=== PATIENT | female | born 1960 | race African-American/Black ===

== ENCOUNTER 2017-10-21 02:44 | Emergency (ER) | payer OTHER ==
--- NOTE | 2017-10-21 03:07 | PDOC ---
History of Present Illness - General Stated Complaint: BACK PAIN Time Seen by Provider: 10/21/17 03:07 - History of Present Illness Initial Comments: 57 year old with history of HTN and 4 c-sections presenting with bilateral lower back/ flank pain radiaitng to her pelvis with increased urinary frequency. This was all sudden onset sharp 10/10 pain beginning at 14:00 yesterday that has progressively gotten worse. admits to some nausea along with the pain but no vomiting, fevers, chills, diarrhea, constipation, or other symptoms. She did have renal stones in the remote past. Her PCP is Prashanth Garcia 10/21/17 03:49 Past History - Past Medical History Allergies/Adverse Reactions: Allergies Allergy/AdvReac Type Severity Reaction Status Date / Time codeine [Codeine] Allergy Intermediate Itching Verified 07/13/12 16:37 Shellfish Allergy Intermediate Nausea Verified 07/13/12 16:37 tetracycline [Tetracycline] Allergy Intermediate Itching Verified 07/13/12 16:37 Home Medications: Ambulatory Orders Ibuprofen [Motrin -] 600 mg PO QID PRN #28 tablet 10/21/17 Anemia: No Asthma: Yes Cancer: No Cardiac Disorders: No CVA: No COPD: No CHF: No Dementia: No Diabetes: No GI Disorders: No Disorders: No HTN: Yes Hypercholesterolemia: No Kidney Stones: (questionable history of kidney stones) Liver Disease: No Seizures: No Thyroid Disease: No - Surgical History Abdominal Surgery: No Appendectomy: No Cardiac Surgery: No Cholecystectomy: No Lung Surgery: No Neurologic Surgery: No Orthopedic Surgery: No - Suicide/Smoking/Psychosocial Hx Smoking Status: No Smoking History: Never smoked Have you smoked in the past 12 months: No Number of Cigarettes Smoked Daily: 0 Hx Alcohol Use: No Drug/Substance Use Hx: No Substance Use Type: None Hx Substance Use Treatment: No Review of Systems - Review of Systems Constitutional: No: Diaphoresis, Fever, Weakness HEENTM: No: Eye Pain, Blurred Vision Respiratory: No: Cough, Orthopnea, Shortness of Breath Cardiac (ROS): No: Chest Pain ABD/GI: No: Constipated, Diarrhea, Nausea, Vomiting : No: Burning, Dysuria, Discharge Musculoskeletal: Yes: Back Pain. No: Joint Pain Integumentary: No: Bruising, Lesions, Lumps Neurological: No: Headache, Numbness *Physical Exam - Physical Exam General Appearance: Yes: Nourished, Appropriately Dressed. No: Apparent Distress HEENT: positive: EOMI, CLEMENT, Normal ENT Inspection. negative: Normal Voice Neck: positive: Trachea midline, Normal Thyroid, Supple. negative: Tender, Rigid Respiratory/Chest: positive: Lungs Clear, Normal Breath Sounds. negative: Chest Tender, Respiratory Distress, Accessory Muscle Use Cardiovascular: positive: Regular Rhythm, Regular Rate Gastrointestinal/Abdominal: positive: Normal Bowel Sounds, Flat, Soft. negative : Tender Musculoskeletal: positive: Normal Inspection. negative: CVA Tenderness Extremity: positive: Normal Capillary Refill, Normal Inspection, Normal Range of Motion. negative: Tender Integumentary: positive: Normal Color, Dry, Warm Neurologic: positive: Fully Oriented, Alert, Normal Mood/Affect, Normal Response , Motor Strength 01/14 ED Treatment Course - LABORATORY CBC & Chemistry Diagram: 10/21/17 03:59 10/21/17 03:59 Medical Decision Making - Medical Decision Making 57 year old female presenting with sudden onset bilateral lower back pain radiating to her pelvis. Original concern was for renal calculi but UA and CT abdomen/pelvis negative but does demonstrate a fibroid that she is aware of. Pain better after toradol 15 IV. Will discharge with 600 ibuprofen QID for a few days. 10/21/17 06:13 *DC/Admit/Observation/Transfer Diagnosis at time of Disposition: Fibroid Qualifiers: Uterine leiomyoma location: unspecified location Qualified Code(s): D25.9 - Leiomyoma of uterus, unspecified - Discharge Dispostion Disposition: HOME Condition at time of disposition: Improved Admit: No - Referrals Referrals: Joe Harding [Primary Care Provider] - Chance Diaz MD [Staff Physician] - - Patient Instructions Printed Discharge Instructions: DI for Uterine Fibroids Additional Instructions: You do not have kidney stones. The pain is likely due to your fibroids which you knew about already. Please follow up with your flaker operator and in the meant time you can take ibuprofen 600 up to four times per day for a week. We gave you a referral for another flaker operator on this form if you do not have a flaker operator. Please return if the pain does not improve with medication or if you have uncontrolled bleeding. - Post Discharge Activity
[2017-10-21 03:29] VITALS: TEMP 97.4; BMI 47.0
[2017-10-21] MEDS ORDERED: KETOROLAC TROMETHAMINE 15 MG/ML VIAL IVPUSH ONE (03:47)
[2017-10-21] MEDS ORDERED: KETOROLAC TROMETHAMINE 15 MG/ML VIAL ONE (03:56)
[2017-10-21 04:10] LABS: BASO % 0.7 % (0-2.0); EOS % 1.3 % (0-4.5); HEMATOCRIT 39.3 % (32.4-45.2); HEMOGLOBIN 12.9 GM/dL (10.7-15.3); LYMPH % 23.4 % (8-40); MCH 29.9 pg (25.7-33.7); MCHC 32.8 g/dl (32.0-36.0); MEAN CELL VOLUME 91.2 fl (80-96); MEAN PLT VOLUME 10.2 fl (7.5-11.1); MONO % 9.9 % (3.8-10.2); NEUT % 64.7 % (42.8-82.8); PLATELET COUNT 172 K/MM3 (134-434); RBC 4.31 M/mm3 (3.60-5.2); RDW 14.9 % (11.6-15.6); WHITE BLOOD COUNT 4.6 K/mm3 (4.0-10.0)
[2017-10-21 04:13] LABS: URINE APPEARANCE CLEAR; URINE BILIRUBIN NEGATIVE (NEGATIVE); URINE BLOOD NEGATIVE (NEGATIVE); URINE COLOR STRAW; URINE GLUCOSE (UA) NEGATIVE (NEGATIVE); URINE KETONE NEGATIVE (NEGATIVE); URINE LEUK ESTERASE NEGATIVE (NEGATIVE); URINE NITRITE NEGATIVE (NEGATIVE); URINE PROTEIN NEGATIVE (NEGATIVE); URINE UROBILINOGEN NEGATIVE mg/dL (0.2-1.0)
[2017-10-21 04:20] LABS: HCG,QUALITATIVE URINE NEGATIVE
--- NOTE | 2017-10-21 04:31 | PDOC ---
Attending Attestation - HPI HPI: 10/21/17 04:32 The patient is a 57 year old female, with a significant past medical history of hypertension and kidney stones in remote past, who presents to the emergency department with bilateral lower back and flank pain with radiation to her lower abdomen. She also reports some increased urinary frequency and mild nausea, but denies vomiting. The patient denies chest pain, shortness of breath, headache and dizziness. The patient denies fever, chills, vomit, diarrhea and constipation. The patient denies dysuria, frequency, urgency and hematuria. Allergies: NKDA - Physicial Exam PE: 10/21/17 04:32 GENERAL: Well developed, well nourished. Awake and alert. No acute distress. HEENT: Normocephalic, atraumatic. PERRLA, EOMI. No conjunctival pallor. Sclera are non- icteric. Moist mucous membranes. Oropharynx is clear. NECK: Supple. Full ROM. No JVD. Carotid pulses 2+ and symmetric, without bruits. No thyromegaly. No lymphadenopathy. CARDIOVASCULAR: Regular rate and rhythm. No murmurs, rubs, or gallops. Distal pulses are 2+ and symmetric. PULMONARY: No evidence of respiratory distress. Lungs clear to auscultation bilaterally. No wheezing, rales or rhonchi. ABDOMINAL: Soft. Non-tender. Non-distended. No rebound or guarding. No organomegaly. Normoactive bowel sounds. MUSCULOSKELETAL Normal range of motion at all joints. No bony deformities or tenderness. No CVA tenderness. EXTREMITIES: No cyanosis. No clubbing. No edema. No calf tenderness. SKIN: Warm and dry. Normal capillary refill. No rashes. No jaundice. NEUROLOGICAL: Alert, awake, appropriate. Cranial nerves 2-12 intact. Normoreflexic in the upper and lower extremities. Normal speech. Toes are down-going bilaterally. Gait is normal without ataxia. PSYCHIATRIC: Cooperative. Good eye contact. Appropriate mood and affect. - Medical Decision Making 10/21/17 04:33 Documentation prepared by Sejal Lima, acting as medical/surgery registered nurse for Rosendo Rodriguez DO. <Sejal Lima - Last Filed: 10/21/17 04:32> - Resident Resident Name: Sneha Figueroa - ED Attending Attestation I have performed the following: I have examined & evaluated the patient, The case was reviewed & discussed with the resident, I agree w/resident's findings & plan, Exceptions are as noted - Medical Decision Making 10/21/17 06:16 Pt treated and released <Rosendo Rodriguez - Last Filed: 10/21/17 06:17>
[2017-10-21 05:00] LABS: ALBUMIN 3.4 g/dl (3.4-5.0); ANION GAP 7 (8-16); BLOOD UREA NITROGEN 13 mg/dL (7-18); CALCIUM 8.3 mg/dL (8.5-10.1); CHLORIDE 108 mmol/L (98-107); CO2 26 mmol/L (21-32); CREATININE 0.7 mg/dL (0.55-1.02); GLUCOSE,RANDOM 100 mg/dL (74-106); POTASSIUM 3.9 mmol/L (3.5-5.1); SGOT/AST 14 U/L (15-37); SGPT/ALT 15 U/L (12-78); SODIUM 141 mmol/L (136-145)
[2017-10-21 05:02] LABS: ALK PHOS 92 U/L (45-117); TOT PROT 6.8 g/dl (6.4-8.2)
[2017-10-21 06:30] VITALS: BP 161/101; PULSE 96
== END 2017-10-21 06:38 | disposition home or self-care (01) ==
LOC: JER 02:44
PROC: 3E0333Z Introduction of Anti-inflammatory into Peripheral Vein, Percutaneous Approach (ICD-10-PCS; principal; 2017-10-21)
DX: D25.9 Leiomyoma of uterus, unspecified (principal)
CPT/HCPCS: 36415; 74176; 80053; 81003; 84703; 85025; 87086; 96374; 99282-25

== ENCOUNTER 2019-02-28 16:55 | Emergency (ER) | payer OTHER | END 2019-02-28 19:39 | disposition home or self-care (01) | LOC: JERFT 16:55 ==